=== PATIENT | female | born 1960 | race Caucasian/White ===

== ENCOUNTER 2020-01-28 10:39 | Outpatient (CLI) | payer BC ==
--- NOTE | 2020-01-28 11:36 | CT ---
CT ABDOMEN PELVIS WITHOUT IV CONTRAST: HISTORY:Calculus of kidney and renal cysts COMPARISON: None DISCLAIMER: Absence of oral and IV contrast reduces the sensitivity of the exam particularly for the evaluation of solid organs and bowel. FINDINGS: There is a 5 mm peripheral nodule in the right lung base.. No free air or free fluid is seen in the a bdomen or pelvis. No calcified gallstones are noted. There are bilateral renal calculi, the largest measures 1 cm in the right inferior pole. Bilateral re nal and parapelvic cysts are seen, the largest is in the inferior pole of the left kidney measuring 4.7 cm. No calculi are seen in the ureters or the urinary bladder. No hydroureteronephrosis is noted on either side. A tiny fat-containing umbilical hernia is noted. The small bowel loops are not abnormally dilated. Th e patient is post hysterectomy. There are degenerative changes in the spine. There are vascular calcifications without evidence of aneurysmal dilatation of the abdominal aorta. IMPRESSION: 1. Nonobstructing bilateral renal calculi and bilateral renal cysts. 2. 5 mm right basilar lung nodule. If the patient is high risk, a dedicated CT scan of the chest shou ld be performed.
== END 2020-01-28 10:40 | disposition home or self-care (01) ==
LOC: BICCT 10:39
PROVIDERS: ATTEND Urology
DX: N20.0 Calculus of kidney (principal); N28.1 Cyst of kidney, acquired; R91.1 Solitary pulmonary nodule
CPT/HCPCS: 74176

== ENCOUNTER 2022-11-16 07:27 | Outpatient (CLI) | payer OTHER | END 2022-11-16 07:28 | disposition home or self-care (01) | LOC: NM 07:27 | PROVIDERS: ATTEND Otolaryngology Plastic Surgery within the Head & Neck | DX: E21.3 Hyperparathyroidism, unspecified (principal) | CPT/HCPCS: 78072; A9500 ==

== ENCOUNTER 2023-02-14 09:36 | Outpatient (CLI) | payer OTHER | END 2023-02-14 09:37 | disposition home or self-care (01) | LOC: SCSCT 09:36 | PROVIDERS: ATTEND Physician Assistant | DX: H70.90 Unspecified mastoiditis, unspecified ear (principal); M89.9 Disorder of bone, unspecified; G96.08 Other cranial cerebrospinal fluid leak; Z98.890 Other specified postprocedural states | CPT/HCPCS: 70480 ==